=== PATIENT | male | born 1950 | race Caucasian/White ===

== ENCOUNTER → 2016-06-16 | Outpatient (CLI) | payer MEDICARE, OTHER ==
--- NOTE | 2016-06-16 17:16 | XR ---
Abdomen HISTORY: Right-sided flank pain, kidney stone, calculus of ureter Frontal view of the abdomen submitted on 2 images No comparisons There is overlying artifact present. Mild degenerative disc changes are present in the visualized spi ne. Lung bases are not included on the exam. There is no pneumoperitoneum or bowel obstruction. Left- sided kidney stones are present at the lower pole level which measures approximately 6 mm and the sec ond approximately 5 mm. At the level in the region of the distal right ureter there is a calcificatio n present measuring approximately 7 mm. IMPRESSION: Suspect left-sided nephrolithiasis. Possible distal right ureteral calculus. Exam may be limited.
== END | disposition home or self-care (01) ==
LOC: RADXRMAIN 15:32
PROVIDERS: ATTEND Urology
DX: N20.1 Calculus of ureter (principal)
CPT/HCPCS: 74000

== ENCOUNTER → 2016-06-17 | Outpatient (CLI) | payer OTHER, MEDICARE ==
--- NOTE | 2016-06-17 11:08 | CT ---
EXAMINATION TYPE: CT abdomen pelvis wo con DATE OF EXAM: 06/17/2016 10:54 AM COMPARISON: NONE HISTORY: Patient complains of right flank pain, microscopic hematuria, and history of prior renal sto anselmo. CT DLP: 2645.7 mGycm FINDINGS: LUNG BASES: No evidence for nodule. No evidence for infiltrate. LIVER/GB: The gallbladder is unremarkable. No space-occupying hepatic lesion. PANCREAS: No pancreatic mass identified. No inflammatory process seen. SPLEEN: No evidence for splenomegaly. No intrasplenic lesions seen. ADRENALS: Nonspecific right adrenal nodule measuring 1.7 cm No evidence for thickening. KIDNEYS: No evidence for renal mass. Nonobstructing calculus lower pole left measures 5 mm. Additiona l 2 mm nonobstructing calculus left kidney. Parapelvic left renal cyst. No hydronephrosis. BOWEL: Appendix has a normal appearance. No evidence of bowel obstruction. No inflammatory process. Lymph nodes: No evidence for adenopathy greater than 1 cm. Abdominal aorta: Atheromatous changes seen. No evidence for aneurysm. Genital organs: No significant abnormality. Other: Degenerative changes of lumbar spine.. IMPRESSION: 1. NONOBSTRUCTING NEPHROLITHIASIS.
== END | disposition home or self-care (01) ==
LOC: RADCTMAIN 10:27
PROVIDERS: ATTEND Family Medicine
DX: N20.0 Calculus of kidney (principal)
CPT/HCPCS: 74176

== ENCOUNTER → 2016-08-16 | Outpatient (CLI) | payer OTHER ==
[2016-08-16 08:40] LABS: EKG EKG PERFORMED
[2016-08-16 09:24] LABS: Basophils % (A) 0 %; CH 29.6; CHCM 33.4; Eosinophils # (A) 0.1 k/uL (0-0.7); Eosinophils % (A) 2 %; HCT 44.1 % (39.0-53.0); HDW 2.51; HGB 15.1 gm/dL (13.0-17.5); Luc # (Auto) 0.12; Luc % (Auto) 2; Lymphocytes # (A) 1.5 k/uL (1.0-4.8); Lymphocytes % (A) 20 %; MCH 30.5 pg (25.0-35.0); MCHC 34.1 g/dL (31.0-37.0); MCV 89.2 fL (80.0-100.0); Mean Platelet Volume 6.5; Monocytes # (A) 0.5 k/uL (0-1.0); Monocytes % (A) 7 %; Neutrophils # (A) 5.3 k/uL (1.3-7.7); Neutrophils % (A) 70 %; RBC 4.94 m/uL (4.30-5.90); RDW 13.8 % (11.5-15.5); WBC 7.6 k/uL (3.8-10.6); WBC (Perox) 7.42
[2016-08-16 09:44] LABS: Anion Gap 12 mmol/L; Blood Urea Nitrogen 17 mg/dL (9-20); Calcium 9.3 mg/dL (8.4-10.2); Carbon Dioxide 26 mmol/L (22-30); Chloride 103 mmol/L (98-107); Glucose 137 mg/dL (74-99); Non-African American GFR(MDRD) >60 (>60 ml/min/1.73 sqM); Potassium 4.5 mmol/L (3.5-5.1); Sodium 141 mmol/L (137-145)
== END | disposition home or self-care (01) ==
LOC: LABPAT 08:30
PROVIDERS: ATTEND Physician Assistant
DX: Z01.810 Encounter for preprocedural cardiovascular examination (principal); Z01.812 Encounter for preprocedural laboratory examination; I10 Essential (primary) hypertension; N20.0 Calculus of kidney; E11.9 Type 2 diabetes mellitus without complications
CPT/HCPCS: 80048; 85025; 93005

== ENCOUNTER 2016-08-23 05:58 | Day surgery (SDC) | payer MEDICARE, OTHER ==
[2016-08-17 11:00] VITALS: BMI 45.3
[~2016-08-23 05:58] MED LIST: HYDROmorphone 1 MG/ML 1 ML SYRINGE IVP PRN; LACTATED RINGERS 1,000 ML IV SCH; LIDOCAINE 1% 20 ML VIAL (10MG/ML) FOR IV START INTRADERMA PRN; Pre Op ABX Message 1 EACH MISC MISCELLANE ONE
[2016-08-23 06:23] VITALS: RESP 18; TEMP 96.9
[2016-08-23 06:50] LABS: Glucose,Whole Blood 125 mg/dL (75-99)
[2016-08-23] MEDS ORDERED: DEXAMETHASONE SOD PHOSPHATE 10 MG/ML 1 ML VIAL IV ONE (07:02)
[2016-08-23] MEDS ORDERED: fentaNYL (PF) 50 MCG/ML 2 ML AMP ONE (07:34)
[2016-08-23] MEDS ORDERED: GLYCOPYRROLATE 0.2 MG/ML 2 ML VIAL ONE (07:34)
[2016-08-23] MEDS ORDERED: MIDAZOLAM 2 MG/2 ML VIAL ONE (07:34)
[2016-08-23] MEDS ORDERED: KETAMINE 10 MG/ML 20 ML VIAL ONE (07:34)
[2016-08-23] MEDS ORDERED: PROPOFOL 10 MG/ML 20 ML VIAL IV ONE (07:34)
[2016-08-23] MEDS ORDERED: LIDOCAINE 1% INJ 10MG/ML (20 ML MDV) ONE (07:34)
--- NOTE | 2016-08-23 07:53 | XR ---
EXAMINATION TYPE: XR KUB DATE OF EXAM: 08/23/2016 HISTORY: Pain Comparison: None.Single KUB is submitted for interpretation. Findings: Right renal calculi: None Visualized. Right ureteral calculi: None Visualized. Left renal calculi: 2 renal calculi are seen overlying the lower pole of the left kidney measuring 6 .4 and 4.7 mm respectively. Left ureteral calculi: None Visualized. Pelvic calcifications: None Visualized. Bowel gas pattern is unremarkable. No free air. No mass effects. IMPRESSION: 1. Left-sided renal calculi as noted.
--- NOTE | 2016-08-23 08:41 | P.OP ---
Date of Procedure: 08/23/16 Preoperative Diagnosis: Left Renal Calculi Postoperative Diagnosis: Same Procedure(s) Performed: Left Extracorporeal Shockwave Lithotripsy (ESWL) Implants: Anesthesia: MAC Surgeon: Kris Menezes Estimated Blood Loss (ml): 0 IV fluids (ml): 600 Pathology: none sent Condition: stable Disposition: PACU Indications for Procedure: He is a 65 year old male with a history of kidney stones. A CT scan in 2015 showed an 8 mm left renal calculus and a 4 mm right renal calculus. He elected no treatment at the time. He passed a stone on the right a few months ago. He recently experienced right renal colic, and a CT scan showed a 7-8 mm left renal calculus, a 2 mm left renal calculus, and a 7 mm right distal ureteral calculus (which he passed). He now comes for left ESWL. Operative Findings: No obvious fragmentation. Description of Procedure: The patient was taken to the operating room and placed on the Dornier Compact Delta II lithotripter in the supine position. The calculi were seen on biplanar fluoroscopy. Once the patient was properly positioned and sedated, lithotripsy was performed. The energy level was gradually increased per protocol, to an energy level of 5. After 200 shocks were administered, a 2 minute pause was instituted per protocol. A total of 2500 shocks were given at a rate of 60 shocks per minute. Fluoroscopy was utilized at a minimum to ensure proper positioning and determine the treatment status. The appearance of the calculus failed to change, suggesting fragmentation had not occurred. The patient tolerated the procedure well was taken to the recovery room in stable condition. Instructions were given to strain the urine, and the patient will follow-up within one week.
[2016-08-23 09:09] VITALS: BP 105/69; PULSE 61
== END 2016-08-23 10:13 | disposition home or self-care (01) ==
LOC: ORWHC2ENDO 05:58
PROVIDERS: ATTEND Urology
DX: N20.0 Calculus of kidney (principal); E66.01 Morbid (severe) obesity due to excess calories; Z68.42 Body mass index [BMI] 45.0-49.9, adult; E11.9 Type 2 diabetes mellitus without complications; Z79.84 Long term (current) use of oral hypoglycemic drugs; I10 Essential (primary) hypertension; E78.00 Pure hypercholesterolemia, unspecified; I25.10 Atherosclerotic heart disease of native coronary artery without angina pectoris; N42.9 Disorder of prostate, unspecified; G47.33 Obstructive sleep apnea (adult) (pediatric); Z79.82 Long term (current) use of aspirin; Z79.899 Other long term (current) drug therapy
CPT/HCPCS: 74000; 50590; J2250; J1100; J2001; J3010; J2704

== ENCOUNTER → 2016-08-30 | Outpatient (CLI) | payer OTHER ==
--- NOTE | 2016-08-30 07:48 | XR ---
Abdomen HISTORY: Calculus of kidney Frontal view of the abdomen submitted on 2 images and correlated to prior dated 08/23/2016 There is been interval migration of a calcification likely in the level of the proximal left ureter m easuring approximately 6 to 7 mm. Persistent lower pole calcification is noted in the left kidney catracho suring approximately 4 to 5 mm. No other interval change. IMPRESSION: Interval migration of left renal calcification suspected into the proximal left ureter. P ersistent left nephrolithiasis.
== END | disposition home or self-care (01) ==
LOC: RADXRMAIN 07:12
PROVIDERS: ATTEND Urology
DX: N20.0 Calculus of kidney (principal)
CPT/HCPCS: 74000

== ENCOUNTER 2016-09-09 07:21 | Day surgery (SDC) | payer OTHER ==
[2016-08-31 16:06] VITALS: BMI 45.3
[~2016-09-09 07:21] MED LIST changes: +DEXAMETHASONE SOD PHOSPHATE 10 MG/ML 1 ML VIAL IV ONE; +MIDAZOLAM 2 MG/2 ML VIAL IV PRN; +ONDANSETRON 4 MG/2 ML VIAL IVP ONE; -Pre Op ABX Message 1 EACH MISC MISCELLANE ONE; +SCOPOLAMINE 1.5MG/72HR PATCH TRANSDERM ONE; +ceFAZolin 3 GM in SODIUM CHLORIDE 0.9% 100 ML IVPB ONE
--- NOTE | 2016-09-09 07:43 | XR ---
EXAMINATION TYPE: XR KUB DATE OF EXAM: 09/09/2016 7:21 AM CLINICAL HISTORY: Left nephrolithiasis and recent lithotripsy. TECHNIQUE: Single supine KUB image of the abdomen is obtained. COMPARISON: 08/30/2016. FINDINGS: The previously seen 6 to 7 mm calculus seen beside the L2-L3 intervertebral level over the psoas musculature on the prior exam of 08/30/2016 is no longer evident and has likely passed in the in terim. Remaining left lower pole calculus measures approximately 4 mm. Scattered gas is seen in non-d istended small bowel loops. Gas and fecal material is seen in non-distended colon. Degenerative rudolph ges are appreciated of the lumbosacral spine, femoral acetabular joints as well as heterotopic ossifi cation and sacroiliac joints. IMPRESSION: 1. Nonvisualization of the previously seen 7 mm calculus as this calculus has likely passed secondary to recent lithotripsy. 2. Persistent 4 mm left lower pole renal calculus, unchanged from the prior.
[2016-09-09 08:17] LABS: Glucose,Whole Blood 129 mg/dL (75-99)
[2016-09-09] MEDS ORDERED: MIDAZOLAM 2 MG/2 ML VIAL ONE (09:48)
[2016-09-09] MEDS ORDERED: LIDOCAINE 1% INJ 10MG/ML (20 ML MDV) ONE (09:48)
[2016-09-09] MEDS ORDERED: NEOSTIGMINE 1 MG/ML 10 ML VIAL ONE (09:48)
[2016-09-09] MEDS ORDERED: ROCURONIUM BROMIDE 10 MG/ML 10 ML VIAL IV ONE (09:48)
[2016-09-09] MEDS ORDERED: ePHEDrine 50 MG/ML 1 ML AMP ONE (09:48)
[2016-09-09] MEDS ORDERED: PROPOFOL 10 MG/ML 20 ML VIAL IV ONE (09:48)
[2016-09-09] MEDS ORDERED: SUCCINYLCHOLINE CHLORIDE VIAL 200 MG/10 ML VIAL IV ONE (09:48)
[2016-09-09] MEDS ORDERED: fentaNYL (PF) 50 MCG/ML 2 ML AMP ONE (09:48)
[2016-09-09] MEDS ORDERED: GLYCOPYRROLATE 0.2 MG/ML 2 ML VIAL ONE (09:48)
[2016-09-09] MEDS ORDERED: LACTATED RINGERS 1,000 ML IV ONE (10:40)
--- NOTE | 2016-09-09 10:57 | P.OP ---
Date of Procedure: 09/09/16 Preoperative Diagnosis: Left ureteral calculus, left renal calculus Postoperative Diagnosis: Same Procedure(s) Performed: Cystoscopy, Left Ureteroscopy With Holmium Laser Lithotripsy Implants: Anesthesia: PILOA Surgeon: Kris Menezes Estimated Blood Loss (ml): 0 IV fluids (ml): 800 Pathology: none sent Condition: stable Disposition: PACU Indications for Procedure: He is a 65 year old male with a history of kidney stones. A CT scan in 2015 showed an 8 mm left renal calculus and a 4 mm right renal calculus. He elected no treatment at the time. He passed a stone on the right a few months ago. He recently experienced right renal colic, and a CT scan showed a 7-8 mm left renal calculus, a 2 mm left renal calculus, and a 7 mm right distal ureteral calculus (which he passed). He underwent left ESWL 08/23/2016, but the calculus did not appear to fragment. A follow-up KUB x-ray revealed a 7.8 mm left proximal ureteral calculus, as well as a small left lower pole renal calculus. He has elected to undergo ureteroscopic removal of the calculi. The preoperative KUB x-ray does not reveal a ureteral calculus, but he has experienced pain today and believes the calculus has not passed. Operative Findings: Ureteral calculus impacted at left UVJ. Left lower pole renal calculus. Both fragmented completely. Description of Procedure: The patient was taken to the operating room and placed in the dorsolithotomy position, with legs supported in Rito stirrups. The external genitalia was prepped and draped sterilely. The 30 lens was used to introduce the 19-Cook Islander Stortz cystoscopic sheath through the urethra and into the bladder under direct vision. The prostatic urethra showed evidence of mild lateral lobe enlargement. The bladder was examined in its entirety. Both ureteral orifices were normal anatomic location and configuration. A calculus was seen impacted at the left ureteral orifice. No additional calculi were seen, and there were no tumors seen within the bladder. The A[facility]I semirigid ureteroscope was advanced into the bladder, and the left ureteral orifice was cannulated. The 200 micron Holmium laser probe was passed through the ureteroscope, and lithotripsy was performed. The calculus was fragmented to completion, and all but one tiny calculus fragment passed into the bladder. A 0.038 inch Glidewire was passed through the ureteroscope and up to the left renal pelvis. The semirigid ureteroscope was removed, and the Olympus flexible ureteroscope was passed over the wire, up to the left renal pelvis. The small lower pole calculus was identified within a calyx, and the Holmium laser probe was used to perform lithotripsy. The calculus was fragmented until the calculus fragments were essentially the size of the laser tip. The Glidewire was passed through the ureteroscope, which was removed. The Glidewire was then backloaded into the cystoscope, which was passed into the bladder. A 26 cm, 4.8-[place] Islander double- J ureteral stent was passed over the wire. Proper stent positioning was verified fluoroscopically and endoscopically. The bladder was emptied and the cystoscope removed. The patient tolerated the procedure well and was taken to the recovery room in stable condition.
[2016-09-09 11:06] VITALS: TEMP 97.4
[2016-09-09 11:13] LABS: Glucose,Whole Blood 130 mg/dL (75-99)
--- NOTE | 2016-09-09 11:15 | FL ---
Fluoroscopy HISTORY: Pain 9 seconds fluoroscopy time supplied to the referring clinician. 0 intraoperative C-arm images docume nt the procedure. See dictated report from urology.
[2016-09-09 12:59] VITALS: BP 139/65; PULSE 85; RESP 16
== END 2016-09-09 13:12 | disposition home or self-care (01) ==
LOC: OR 07:21
PROVIDERS: ATTEND Urology
DX: N20.2 Calculus of kidney with calculus of ureter (principal); N28.1 Cyst of kidney, acquired; N40.1 Benign prostatic hyperplasia with lower urinary tract symptoms; R31.29 Other microscopic hematuria; E66.9 Obesity, unspecified; I10 Essential (primary) hypertension; E11.9 Type 2 diabetes mellitus without complications; E78.00 Pure hypercholesterolemia, unspecified; I25.10 Atherosclerotic heart disease of native coronary artery without angina pectoris; E78.5 Hyperlipidemia, unspecified; G47.33 Obstructive sleep apnea (adult) (pediatric); Z79.84 Long term (current) use of oral hypoglycemic drugs; Z79.82 Long term (current) use of aspirin; Z79.891 Long term (current) use of opiate analgesic; Z79.899 Other long term (current) drug therapy; Z87.891 Personal history of nicotine dependence
CPT/HCPCS: 74000; 52356; C2625; C1769; J2250; J0330; J1100; J2710; J0690; J2405; J2001; J3010; J2704

== ENCOUNTER → 2016-10-12 | Outpatient (CLI) | payer OTHER ==
--- NOTE | 2016-10-12 10:07 | US ---
EXAMINATION TYPE: US kidneys/renal and bladder DATE OF EXAM: 10/12/2016 COMPARISON: KUB 06/16/2016 and 09/09/2016, CT 06/17/2016 CLINICAL HISTORY: N20.0 Calculus of kidney. Post left lithotripsy/stent September 2016, for left renal c alculi EXAM MEASUREMENTS: Right Kidney: 13.1 x 6.5 x 5.6 cm Left Kidney: 13.1 x 6.0m x 6.6 cm Post Void Residual Volume: 7.8 mL Right Kidney: No hydronephrosis or masses seen Left Kidney: lower medial pole cyst = 1.9 x 1.8 x 2.0cm; cystic fluid area not truly round in shape n oted lower pole = 2.2 x 1.8 x 1.7cm noted. Small lateral cortical cyst = 0.9 x 0.7 x 0.7cm; parallel hyperechoic vessel noyola noted in image 59 and possible lower pole microcalcification in image 60, ec hogenic focus is present without obstruction. Bladder: wnl Bilateral Jets seen: Yes Normal Post Void Residual: Yes IMPRESSION: The distal right ureteral calculus present on CT scan 06/17/2016 did not cause hydronephrosis on previ ous exam. No hydronephrosis present on the current exam. Cysts are associated with the left kidney, t here may be a nonobstructive calculus in the left kidney measuring only approximately 2 to 3 mm. Cons ider follow-up CT abdomen pelvis without contrast A Yellow message has been communicated to Kris Menezes MD via the [facility] Result system on 10/12/2016 10:04 AM, Message ID [id number].
== END | disposition home or self-care (01) ==
LOC: RADUSWWP 08:47
PROVIDERS: ATTEND Urology
DX: N20.0 Calculus of kidney (principal)
CPT/HCPCS: 76770

== ENCOUNTER → 2017-03-11 | Outpatient (CLI) | payer OTHER ==
[2017-03-11 11:28] LABS: HCT 42.8 % (39.0-53.0); HGB 13.9 gm/dL (13.0-17.5); MCH 29.2 pg (25.0-35.0); MCHC 32.6 g/dL (31.0-37.0); MCV 89.5 fL (80.0-100.0); Mean Platelet Volume 6.5; Platelet Count 280 k/uL (150-450); RBC 4.78 m/uL (4.30-5.90); RDW 13.3 % (11.5-15.5); WBC 7.7 k/uL (3.8-10.6)
[2017-03-11 11:42] LABS: Anion Gap 9 mmol/L; Blood Urea Nitrogen 15 mg/dL (9-20); Carbon Dioxide 30 mmol/L (22-30); Chloride 102 mmol/L (98-107); Sodium 141 mmol/L (137-145)
== END | disposition home or self-care (01) ==
LOC: LABPAT 10:35
PROVIDERS: ATTEND Internal Medicine Interventional Cardiology
DX: Z01.812 Encounter for preprocedural laboratory examination (principal); I20.9 Angina pectoris, unspecified
CPT/HCPCS: 36415; 80051; 82565; 84520; 85027

== ENCOUNTER 2017-03-21 05:55 | Day surgery (SDC) | payer OTHER ==
[2017-03-15 12:12] VITALS: BMI 45.3
[~2017-03-21 05:55] MED LIST changes: +ALPRAZolam 0.25 MG TAB PO PRN; +ALPRAZolam 0.5 MG TAB PO PRN; +ASPIRIN 325 MG TAB PO STA; +ATORVASTATIN 80 MG TAB PO STA; -DEXAMETHASONE SOD PHOSPHATE 10 MG/ML 1 ML VIAL IV ONE; -HYDROmorphone 1 MG/ML 1 ML SYRINGE IVP PRN; -LACTATED RINGERS 1,000 ML IV SCH; -LIDOCAINE 1% 20 ML VIAL (10MG/ML) FOR IV START INTRADERMA PRN; -MIDAZOLAM 2 MG/2 ML VIAL IV PRN; +NITROGLYCERIN SL TABS 0.4 MG TAB SUBLINGUAL PRN; -ONDANSETRON 4 MG/2 ML VIAL IVP ONE; -SCOPOLAMINE 1.5MG/72HR PATCH TRANSDERM ONE; +SODIUM CHLORIDE 0.9% 1,000 ML in EMPTY BAG 1 BAG IV ONE; -ceFAZolin 3 GM in SODIUM CHLORIDE 0.9% 100 ML IVPB ONE
[2017-03-21 06:42] VITALS: TEMP 98.2
[2017-03-21 07:30] LABS: Glucose,Whole Blood 111 mg/dL (75-99)
[2017-03-21] MEDS ORDERED: MIDAZOLAM 2 MG/2 ML VIAL IV ONE (07:42)
[2017-03-21] MEDS ORDERED: LIDOCAINE 2% INJ 20 MG/ML SQ ONE (07:50)
[2017-03-21] MEDS ORDERED: fentaNYL (PF) 50 MCG/ML 2 ML AMP IV ONE (08:09)
[2017-03-21] MEDS: HEPARIN SODIUM 1,000 UN/ML (10ML VL) IV ONE ×2 (08:13→08:34)
[2017-03-21] MEDS ORDERED: HYDROmorphone 2 MG/ML 1 ML SYRINGE IV ONE (08:45)
[2017-03-21] MEDS ORDERED: RX INFO: IV CONTRAST WAS GIVEN 1 EACH MISC MISCELLANE PRN (08:49)
[2017-03-21] MEDS ORDERED: IOHEXOL 350 MG/ML (PER ML) 100ML BTL INJ ONE (08:52)
[2017-03-21] MEDS ORDERED: SODIUM CHLORIDE 0.9% 1,000 ML IV SCH (09:00)
--- NOTE | 2017-03-21 13:07 | AN ---
ANGIOGRAPHY REPORT DATE OF SERVICE: 03/21/2017. PROCEDURE: 1. Coronary angiography. 2. Intravascular ultrasound off left main, LAD and circumflex. PERFORMED BY: Dr. Kaylie Khan. CLINICAL INFORMATION: Mr. Pepe Elliott is a 66-year-old gentleman with type 2 diabetes, hypertension, hyperlipidemia, who underwent stenting of mid LAD performed by me on January 12 after checking FFR in LAD and circumflex. There is a calcification involving the distal left main that also involves the circumflex artery. There is also a proximal LAD area of narrowing with some calcification as well. I brought him for the procedure mainly to assess if there was a significant lesion and then consider intervention based on the findings. Risks, benefits, options and rationale were explained. His distal RCA which is a nondominant RCA was totally occluded. There are not many collaterals from the left system, but given that the branches of RCA on his original cath in 2010 were very small, I did feel we should do intervention. PROCEDURE NOTE: Under local anesthesia and strict aseptic precautions, a 6-[place]orese introducer was placed in the right femoral artery. I used a micropuncture needle technique and I was able to get into the superficial femoral just after bifurcation. I performed selective coronary angiography of the left system using a standard left Yasmin type-guide catheter. I then advanced under fluoroscopic guidance, a BMW wire into the circumflex and performed intravascular ultrasound with the IVUS catheter. After obtaining all the images, I then advanced the catheter into the LAD well beyond the mid LAD stented segment and performed IVUS of the LAD at the stented area as well as the ostium of the LAD, distal left main and also ostial left main. IVUS data suggested that the left main was about 9.5 mm2 by area and this was the area of the lumen. LAD proximally was about 9.3, and the circumflex did not have any significant lesion. Within the stented segment, the stent was well apposed and there was no significant narrowing. These findings were reviewed with the patient in great detail as well as his and son. I am therefore recommending medical therapy without intervention. The patient received 9,500 units of heparin and ACT was about 232 and additional 1500 was given. The sheath was sutured. He was sent to the room in a stable condition with the understanding sheath will be pulled later on and patient will be discharged on medical therapy with an increase in his atorvastatin from 40 to 80 mg of atorvastatin daily. ASSESSMENT: Following coronary angiography and IVUS of both LAD and circumflex and left main, there is no hemodynamically significant lesion noted. The LAD had brisk flow, stented segment was widely patent angiographically and well-opposed stents were noted with good lumen by IVUS. The distal left main had calcification but the lumen was more than 9.5 mm2. Ostial LAD was free of significant disease. Circumflex did not have any significant disease by IVUS. Results were discussed with the patient and family and he will be discharged later on today if he remains stable. Patient received conscious sedation with a combination of Versed and fentanyl. Total duration of conscious sedation was about was 56 minutes. MMODL / IJN: [id number] /
[2017-03-21 15:52] VITALS: BP 141/67; PULSE 70; RESP 18
== END 2017-03-21 18:00 | disposition home or self-care (01) ==
LOC: CATHCVL 05:55
PROVIDERS: ATTEND Internal Medicine Interventional Cardiology
DX: I25.110 Atherosclerotic heart disease of native coronary artery with unstable angina pectoris (principal); I25.84 Coronary atherosclerosis due to calcified coronary lesion; I10 Essential (primary) hypertension; Z95.5 Presence of coronary angioplasty implant and graft; Z87.891 Personal history of nicotine dependence; E78.00 Pure hypercholesterolemia, unspecified; E78.5 Hyperlipidemia, unspecified; E11.9 Type 2 diabetes mellitus without complications; Z79.84 Long term (current) use of oral hypoglycemic drugs; E66.9 Obesity, unspecified; Z68.42 Body mass index [BMI] 45.0-49.9, adult; Z79.02 Long term (current) use of antithrombotics/antiplatelets; Z79.82 Long term (current) use of aspirin; Z79.899 Other long term (current) drug therapy
CPT/HCPCS: 92978; 93454; C1769 ×3; C1887; C1894; C1753; J2001; J2250; J1170; Q9967; J3010; J1644

== ENCOUNTER → 2019-12-04 | Day surgery (SDC) | payer MEDICARE, OTHER ==
[2019-11-30 11:10] VITALS: BMI 44.6
[~2019-12-04] MED LIST changes: -ALPRAZolam 0.25 MG TAB PO PRN; -ALPRAZolam 0.5 MG TAB PO PRN; -ASPIRIN 325 MG TAB PO STA; -ATORVASTATIN 80 MG TAB PO STA; +LACTATED RINGERS 1,000 ML IV SCH; +LIDOCAINE 1% (10MG/ML) FOR IV START INTRADERMA PRN; -NITROGLYCERIN SL TABS 0.4 MG TAB SUBLINGUAL PRN; +ONDANSETRON 4 MG/2 ML VIAL IVP PRN; +PROPOFOL 10 MG/ML 20 ML VIAL IV ONE; -SODIUM CHLORIDE 0.9% 1,000 ML in EMPTY BAG 1 BAG IV ONE; +fentaNYL (PF) 50 MCG/ML 2 ML AMP IV PRN
[2019-12-04 07:28] VITALS: RESP 16; TEMP 97
[2019-12-04 07:35] LABS: Glucose,Whole Blood 147 mg/dL (75-99)
--- NOTE | 2019-12-04 09:10 | P.PCN ---
Date of Procedure: 12/04/19 Description of Procedure: BRIEF HISTORY: Patient is a pleasant 69-year-old male presenting for outpatient colonoscopy for a history of polyps. Remote history of colonoscopy with polypectomy. Denies any change in bowel habits, blood per rectum or abdominal pain. No family history of colon cancer. PROCEDURE PERFORMED: Colonoscopy with polypectomy. PREOPERATIVE DIAGNOSIS: History of polyps, patient reports a remote history of colonoscopy. ESTIMATED BLOOD LOSS: Minimal. IV sedation per Anesthesia. PROCEDURE: After informed consent was obtained, the patient, was brought into the endoscopy unit. IV sedation was administered by Anesthesia under continuous monitoring. D igital rectal examination was normal. Initially the Olympus CF-190 flexible video colonoscope was then inserted in the rectum, gradually advanced into the cecum without any difficulty. Careful examination was performed as the scope was gradually being withdrawn. Ileocecal valve and the appendiceal orifice were visualized and appeared normal. Prep was excellent. Mucosa of the cecum, ascending colon, transverse colon, descending colon, sigmoid colon, and rectum appeared normal. A few scattered diverticula noted in the sigmoid colon. 3 diminutive polyps measuring 2-3 mm in size removed with cold forcep polypectomy from the cecum, ascending colon and hepatic flexure. 11 mm pedunculated sigmoid polyp removed with hot snare polypectomy. 3 rectal polyps measuring 3-4 mm in size removed with cold snare polypectomy. Retroflexion was performed in the rectum and no lesions were seen. The patient tolerated the procedure well. IMPRESSION: Pedunculated sigmoid polyp removed with hot snare polypectomy. 3 rectal polyps removed with cold snare polypectomy. 3 diminutive polyps removed with cold forcep polypectomy from the cecum, ascending colon and hepatic flexure. Mild sigmoid diverticulosis. RECOMMENDATIONS: Findings of this examination were discussed with the patient and his . Okay to resume diet. Okay to resume medications. Await pathology from polypectomy. Would recommend repeat colonoscopy in 3 years for service colon polyps, pending pathology from polypectomy.
[2019-12-04 09:38] VITALS: BP 108/61; PULSE 71
== END ==
LOC: ORWHC2ENDO 07:00
PROVIDERS: ATTEND Internal Medicine
DX: Z12.11 Encounter for screening for malignant neoplasm of colon (principal); D12.2 Benign neoplasm of ascending colon; D12.0 Benign neoplasm of cecum; D12.5 Benign neoplasm of sigmoid colon; D12.8 Benign neoplasm of rectum; K62.1 Rectal polyp; K57.30 Diverticulosis of large intestine without perforation or abscess without bleeding; Z86.010 Personal history of colon polyps; I25.10 Atherosclerotic heart disease of native coronary artery without angina pectoris; I10 Essential (primary) hypertension; E78.5 Hyperlipidemia, unspecified; I42.9 Cardiomyopathy, unspecified; G47.33 Obstructive sleep apnea (adult) (pediatric); E11.9 Type 2 diabetes mellitus without complications; Z87.891 Personal history of nicotine dependence; Z79.82 Long term (current) use of aspirin; Z79.899 Other long term (current) drug therapy; Z79.84 Long term (current) use of oral hypoglycemic drugs; Z98.890 Other specified postprocedural states; Z96.651 Presence of right artificial knee joint; Z97.2 Presence of dental prosthetic device (complete) (partial); Z95.5 Presence of coronary angioplasty implant and graft; Z87.442 Personal history of urinary calculi
CPT/HCPCS: 88305; 45380; 45385; J2704

== ENCOUNTER 2023-02-22 07:14 | Day surgery (SDC) | payer OTHER ==
[~2023-02-22 07:14] MED LIST changes: -LIDOCAINE 1% (10MG/ML) FOR IV START INTRADERMA PRN; -ONDANSETRON 4 MG/2 ML VIAL IVP PRN; -PROPOFOL 10 MG/ML 20 ML VIAL IV ONE; -fentaNYL (PF) 50 MCG/ML 2 ML AMP IV PRN
[2023-02-22] MEDS ORDERED: LACTATED RINGERS 1,000 ML IV ONE (07:35)
[2023-02-22 07:48] LABS: Glucose,Whole Blood 132 mg/dL (70-110)
[2023-02-22 07:52] VITALS: TEMP 98
[2023-02-22] MEDS ORDERED: LIDOCAINE 1% (10MG/ML) FOR IV START INTRADERMA ONE (07:58)
[2023-02-22] MEDS ORDERED: PROPOFOL 10 MG/ML 20 ML VIAL IV ONE (08:33)
--- NOTE | 2023-02-22 08:52 | P.PCN ---
Date of Procedure: 02/22/23 Procedure(s) Performed: BRIEF HISTORY: Patient is a 72-year-old pleasant white male scheduled for an elective colonoscopy as a part of evaluation of prior history of colon polyps. Last colonoscopy was 5 years ago. PROCEDURE PERFORMED: Colonoscopy snare polypectomy. PREOPERATIVE DIAGNOSIS: History of colon polyps. IV sedation per Anesthesia. PROCEDURE: After informed consent was obtained, the patient, was brought into the endoscopy unit. IV sedation was administered by Anesthesia under continuous monitoring. Digital rectal examination was normal. Initially the Olympus CF-160 flexible video colonoscope was then inserted in the rectum, gradually advanced into the cecum without any difficulty. Careful examination was performed as the scope was gradually being withdrawn. Ileocecal valve and the appendiceal orifice were visualized and appeared normal. Prep was excellent. Mucosa of the cecum, ascending colon, transverse colon, normal. In the descending colon there was a 5 mm sessile polyp that was removed by cold snare polypectomy. descending colon, sigmoid colon, and rectum appeared normal. Retroflexion was performed in the rectum and small internal hemorrhoids were seen. The patient tolerated the procedure well. IMPRESSION: 5 mm descending colon polyp status post cold snare polypectomy Small internal hemorrhoids RECOMMENDATIONS: Findings of this examination were discussed with the patient as well as his family. He was advised to follow with the biopsy results. If the biopsy results adenoma he can have a repeat colonoscopy in 5 years..
[2023-02-22 09:06] VITALS: RESP 16
[2023-02-22 09:30] VITALS: BP 112/54; PULSE 55
== END 2023-02-22 09:35 | disposition home or self-care (01) ==
LOC: ORWHC2ENDO 07:14
PROVIDERS: ATTEND Internal Medicine Gastroenterology
DX: Z12.11 Encounter for screening for malignant neoplasm of colon (principal); K63.5 Polyp of colon; K64.8 Other hemorrhoids; K63.3 Ulcer of intestine; I25.10 Atherosclerotic heart disease of native coronary artery without angina pectoris; I10 Essential (primary) hypertension; E11.40 Type 2 diabetes mellitus with diabetic neuropathy, unspecified; E78.5 Hyperlipidemia, unspecified; G47.33 Obstructive sleep apnea (adult) (pediatric); Z79.84 Long term (current) use of oral hypoglycemic drugs; Z79.899 Other long term (current) drug therapy; Z98.890 Other specified postprocedural states; Z87.891 Personal history of nicotine dependence; Z86.010 Personal history of colon polyps; Z95.5 Presence of coronary angioplasty implant and graft
CPT/HCPCS: 88305; 45385; J2704

== ENCOUNTER → 2023-05-06 | Outpatient (CLI) | payer OTHER ==
--- NOTE | 2023-05-22 19:28 | P.PCN ---
Date of Procedure: 05/06/23 Operative Findings: Home sleep study testing Date of service is 05/06/2023 Pertinent history 72-year-old male patient was referred to me for sleep apnea evaluation. The patient has been tested in the past and offered therapy through [facility] sleep center back in 2009. Nevertheless, the patient did not follow-up on his treatment. As such, the patient is not receiving any treatment. Clinical suspicion for obstructive sleep apnea is high. The patient has an [place] score of 6. He is retired. He has coronary artery disease, hypertension and BPH. The patient has also obesity with a body mass index of 43 Pertinent physical findings Body mass index is 43 Technical description The [employer] TEK apnea link system was used to complete his home sleep study. This is a type III home sleep study. The total recording duration was 7 hours and 26 minutes. The study started at 10:42 PM and ended at 6:08 AM. There was a total of 7 hours and 16 minutes of flow monitoring and 7 hours and 40 minutes of oxygen saturation monitoring Results Respiratory analysis showed a total of 251 obstructive apneas and 298 obstructive hypopneas. Resulting AHI was 74 consistent with severe obstructive sleep apnea and the patient's disease was worsened in supine body position with an AHI of 111 while being supine Oxygenation analysis There was a total of 501 oxygen saturations with a pulse ox drop of more than 4%. Patient spent approximately 1 hours in 21 minutes of the sleep time below pulse ox of 89%. The baseline pulse ox when awake was 95%, average pulse ox during sleep was 91% and the minimum pulse ox was 76% Cardiac summary Average heart rate was 69 with a minimum heart rate of 50 and a maximum depth 91 Assessment Severe obstructive sleep apnea with an AHI of 74, worse in the supine body position. Patient while supine was 119.9. Nocturnal oxygen desaturation with a minimum pulse ox of 76% Hypersomnia with an [place] score of 6 Coronary artery disease Hypertension Diabetes mellitus type 2 BPH Obesity with a BMI of 43.4 Plan Patient has symptomatic obstructive sleep apnea. Recommend CPAP therapy. The patient will be asked to come into the sleep center to undergo a in lab CPAP titration and further recommendations on treatment and will follow. Encourage weight loss. Maintain good sleep hygiene measures. Maintain regular sleep schedule.
== END ==
LOC: 3 N SLEEP 10:45
PROVIDERS: ATTEND Internal Medicine Critical Care Medicine
DX: G47.33 Obstructive sleep apnea (adult) (pediatric) (principal); G47.36 Sleep related hypoventilation in conditions classified elsewhere; G47.10 Hypersomnia, unspecified; I25.10 Atherosclerotic heart disease of native coronary artery without angina pectoris; I10 Essential (primary) hypertension; E11.9 Type 2 diabetes mellitus without complications; N40.0 Benign prostatic hyperplasia without lower urinary tract symptoms; E66.9 Obesity, unspecified; Z68.41 Body mass index [BMI] 40.0-44.9, adult; Z79.84 Long term (current) use of oral hypoglycemic drugs; Z79.899 Other long term (current) drug therapy; Z79.85 Long-term (current) use of injectable non-insulin antidiabetic drugs; Z87.891 Personal history of nicotine dependence